=== PATIENT | female | born 1965 | race Caucasian/White ===

== ENCOUNTER 2016-06-13 21:03 | Emergency (ER) | payer MEDICAID ==
[~2016-06-13] VITALS: Ht 167.6 cm; Wt 64.0 kg
[2016-06-13] MEDS ORDERED: MORPHINE SULFATE 10 MG/ML CPJ IM ONE (22:30)
[2016-06-13] MEDS ORDERED: ONDANSETRON 4MG ODT PO ONE (22:30)
[2016-06-14] MEDS ORDERED: KETOROLAC 60MG/2ML VIAL IM ONE (00:15)
[2016-06-14 02:07] VITALS: BP 128/69
== END 2016-06-14 02:08 | disposition home or self-care (01) ==
LOC: ER 21:05
DX: M25.561 Pain in right knee (principal)
CPT/HCPCS: 73552; 73562; 96372; 99284; J1885; J2270; L1830; Q0162; Z7610